=== PATIENT | female | born 1935 | race Caucasian/White ===

== ENCOUNTER 2017-01-01 21:39 | Inpatient (IN) | payer MEDICARE, OTHER ==
--- NOTE | ~2017-01-01 | EKG ---
PATIENT: AMANDA ORTIZ UNIT #: [id number] Ventricular Rate: 91 BPM Atrial Rate: 93 BPM QRS Duration: 68 ms Q-T Interval: 364 ms QTC Calculation(Bezet): 447 ms Calculated T [place]: 8 degrees Diagnosis Line: Sinus tachycardia Diagnosis Line: Nonspecific T wave abnormality Diagnosis Line: Abnormal ECG Diagnosis Line: No previous ECGs available Diagnosis Line: Confirmed by CONRADO STREETER MD ([id number]) on 01/04/2017 Diagnosis Line: 10:55:02 PM INTERPRETING MD: SYL GALINDO
--- NOTE | ~2017-01-01 | HP ---
Unit #: [id number] #: [id number] Patient: AMANDA ORTIZ [id number] [facility] [address] [facility]. [place], [place] [address] [id number] I MR#: [id number] NAME: AMANDA ORTIZ ROOM: 57224 Age: 85 Sex: F Admission Date: 01/01/2017 : 10/03/1931 Attending Physician: Leah Rain M.D. Primary Care Physician: No Primary Care Physician HISTORY AND PHYSICAL DISCUSSION So this is a lady, we do not know exact name, exact age. She is her 80s. She was found wandering on the streets and somebody called EMS, and she was brought to the emergency room. She was brought to the ER. On workup, she was found to have a UTI, possible pneumonia. She is alert, awake, oriented x0, confused. She is telling me, "My name is Tricia Awan," but she is pleasantly confused, not able to give me any history, medical problems. She has been admitted with pneumonia and UTI. PAST MEDICAL HISTORY Past medical problems are unknown. PAST SURGICAL HISTORY Unknown. HOME MEDICATIONS Unknown. SOCIAL HISTORY Unknown. PHYSICAL EXAMINATION CURRENT VITALS: Temperature is 97.7, heart rate 92, respirations 14, blood pressure 154/91, oxygen 100% on room air. GENERAL: She is alert, awake, oriented x0. HEENT: Pupils are equal and reactive to light. Head is normocephalic and atraumatic. NECK: Neck is supple. No JVD. HEART: S1, S2. Regular rate and rhythm. LUNGS: Lungs are clear to auscultation bilaterally. No rhonchi. No wheezing. ABDOMEN: Abdomen is soft, nontender, nondistended. Bowel sounds are positive. EXTREMITIES: Inspection is normal. No cyanosis. No clubbing. No edema. NEUROLOGIC: No focal neurologic deficits. Cranial nerves II-XII intact. DIAGNOSTIC STUDIES LABORATORY WORKUP: White count is 7, hemoglobin 12, hematocrit 39, platelets 282. Chemistry - Sodium 140, potassium 3.8, chloride 103, glucose 103, BUN 28, creatinine 1.9. LFTs within normal limits. UA is turbid appearance, positive leukocyte esterase, WBC 100-200. Troponin less than 0.05. IMAGING: Chest x-ray - Possible pneumonia. Unit #: [id number] #: [id number] Patient: AMANDA ORTIZ CT head is pending at the time of dictation. ASSESSMENT 1. Change in mental status. 2. Urinary tract infection. 3. Pneumonia. PLAN Admit the patient. Start on regular diet. IV Rocephin, Zithromax. Lovenox for DVT prophylaxis. IV fluids. Will repeat labs in the morning. NOTE: Once again, this patient is a fake name, fake age, fake medical number, unavailable at this time. Dictated by Adri Teixeira TD: 01/02/2017 08:45 JOB #: [id number] HISTORY AND PHYSICAL Page 1 of 1 X X HISTORY AND PHYSICAL
--- NOTE | ~2017-01-01 | HP ---
Unit #: [id number] #: [id number] Patient: BORIS SANZ [id number] [address] [address] [id number] I MR#: [id number] NAME: BORIS SANZ ROOM: 563 Age: 82 Sex: F Admission Date: 01/01/2017 : 1935 Attending Physician: Leah Rain M.D. HISTORY AND PHYSICAL ADDENDUM Additional historical information was obtained upon arrival of family members. I spoke with Karen Sneed, the patient's daughter. Apparently, the patient was last seen normal on December 31, 2016. She had not been complaining of anything, no chest pain, no cough or cold symptoms, and no bowel or bladder problems. She does have a history of dementia. She has had progressively worsening dementia over the past couple of years. She may or may not know the date or where she is. She was apparently moved to a different apartment last week. She had been very upset regarding this issue. She lives alone. Family checks on her frequently. She typically walks without assistance. PAST MEDICAL HISTORY 1. Dementia. 2. Hypertension. 3. Hyperlipidemia. 4. Cerebrovascular accident. 5. Coronary artery disease followed by Dr. Farmer. 6. Valvular heart disease, status post repair. PAST SURGICAL HISTORY Valve repair. SOCIAL HISTORY The patient lives alone. There is no tobacco or alcohol use. She walks without assistance. Her code status is a Do Not Resuscitate. FAMILY HISTORY Noncontributory. I spoke with the patient's family members who are at bedside. They would like halfway placement. I have consulted Care Management and Social Work regarding halfway placement. I have also ordered physical therapy and occupational therapy to evaluate and treat. Dictated by Adri Manley/jose angel TD: 01/02/2017 21:07 JOB #: [id number] Unit #: [id number] #: [id number] Patient: BORIS SANZ HISTORY AND PHYSICAL Page 1 of 1 X Monie Constantino MD X HISTORY AND PHYSICAL
--- NOTE | ~2017-01-01 | DS ---
Unit #: [id number] #: [id number] Patient: BORIS SANZ [id number] [address] [address] [id number] I MR#: [id number] NAME: BORIS SANZ ROOM: 201 Age: 82 Sex: F Admission Date: 01/01/2017 : 1935 Discharge Date: Attending Physician: Leah Rain M.D. Primary Care Physician: Primary Care Physician No DISCHARGE SUMMARY FINAL DIAGNOSES 1. Metabolic encephalopathy. 2. Vascular dementia. 3. Possible community-acquired pneumonia. SECONDARY DIAGNOSES 1. Alzheimer dementia with delirium. 2. Debility. 3. Hypertension. 4. Hyperlipidemia. 5. History of cerebrovascular accident. 6. Coronary artery disease. 7. History of valvular heart disease, status post repair. CONSULTS None. HOSPITAL COURSE The patient is a pleasant 82-year-old female who was admitted to the hospital when someone called EMS as she was found wandering the streets. She was brought to the emergency room and seen. On workup in the emergency room, it was thought that she may have had a urinary tract infection with possible pneumonia. However, her urine cultures were negative. She was eventually started on Rocephin but this was discontinued. She had episodes of delirium while she was hospitalized and for which she was given some Haldol. She is pleasantly confused and lives by herself though family checks up on her periodically. She was evaluated and found to be stable for discharge to long-term care facility. She will be discharged to [facility]. DISCHARGE MEDICATIONS Include: 1. Pacerone 100 mg p.o. daily. 2. Seroquel 12.5 mg p.o. h.s. 3. Amlodipine 7.5 mg p.o. daily. 4. Metoprolol 25 mg p.o. b.i.d. 5. Aricept 5 mg p.o. h.s. 6. Zithromax 250 mg p.o. daily times 4 more days. 7. Multivitamin one tablet p.o. daily. 8. Aspirin 81 mg p.o. daily. 9. Levothyroxine 75 mcg p.o. daily. 10. She will be offered a pneumonia shot perhaps at discharge and a flu shot as well prior to discharge. Unit #: [id number] #: [id number] Patient: BORIS SANZ Time spent on discharge process is 26 minutes. Dictated by... Adri Cruz/mina TD: 01/07/2017 21:57 JOB #: [id number] DISCHARGE SUMMARY Page 1 of 1 X Leah Rain MD X DISCHARGE SUMMARY
--- NOTE | ~2017-01-01 | CT71 ---
[facility] A Service of [facility] RADIOLOGY TEXT RESULTS PATIENT: BORIS SANZ LOCATION: [facility] 563 : 33 UNIT #: [id number] AGE: [address]: Leah Rain MD SEX: F ORDER DR: [id number] [facility] [address] [place], [place] [address] [id number] I MR#: [id number] Acc #: [id number] NAME: AMANDA ORTIZ : 10/03/1931 SEX: F STUDY DATE/TIME: 01/01/2017 22:46 UNIT: CEDOF ROOM: 73816 STUDY DESCRIPTION: CT Head Wo Contrast Attending Physician: Leah Rain M.D. Ordering Physician: Moses Winchester M.D. Primary Care Physician: Primary Care Physician No MEDICAL IMAGING REPORT This report is preliminary unless electronic signature is present EXAM CT head without contrast, 01/01/2017 HISTORY 85-year-old female with confusion and altered mental status today. COMPARISON None TECHNIQUE Routine unenhanced axial images performed through the brain. This CT exam was performed with one or more of the following radiation dose reduction techniques: automatic exposure control, adjustment of mA and/or kV according to patient size, and iterative reconstruction. FINDINGS No hemorrhage, acute infarction, mass lesion, or abnormal extraaxial fluid collection. No midline shift or focal mass effect. Ventricular system is normal in size and configuration. Gxky-ab-kphpszic generalized atrophy. Moderate chronic small vessel disease in the supratentorial white matter. No acute bony abnormality. Visualized paranasal sinuses and mastoid air cells are clear. IMPRESSION 1. No acute intracranial abnormality. 2. Dlcn-wq-cjfsooge generalized atrophy with moderate chronic small vessel disease. Dictated by... Reece Benedict M.D. THIS IS AN ELECTRONICALLY VERIFIED REPORT [facility] A Service of [facility] RADIOLOGY TEXT RESULTS PATIENT: BORIS SANZ LOCATION: [facility] 563 : 33 UNIT #: [id number] AGE: [address]: Leah Rain MD SEX: F ORDER DR: Reece Benedict M.D. at 01/03/2017 4:42 PM MARY/aubrey TD: 01/02/2017 16:17 JOB #: [id number] MEDICAL IMAGING REPORT Page 1 of 1 COPY
--- NOTE | ~2017-01-01 | CR72 ---
[facility] A Service of [facility] RADIOLOGY TEXT RESULTS PATIENT: BORIS SANZ LOCATION: [facility] : 33 UNIT #: [id number] AGE: [address]: Leah Rain MD SEX: F ORDER DR: [id number] [facility] [address] [place], [place] [address] [id number] I MR#: [id number] Acc #: [id number] NAME: AMANDA ORTIZ : 10/03/1931 SEX: F STUDY DATE/TIME: 01/01/2017 21:54 UNIT: CEDOF ROOM: 00825 STUDY DESCRIPTION: CR Chest Single View Portable Attending Physician: Leah Rain M.D. Ordering Physician: Moses Winchester M.D. Primary Care Physician: Primary Care Physician No MEDICAL IMAGING REPORT This report is preliminary unless electronic signature is present EXAM Chest x-ray single view portable HISTORY Short of air with activity, altered mental status, symptoms started today. COMMENT 2 frontal portable views of the chest timed 2154 01/01/2017 submitted for review. There is no comparison. Postoperative cardiac silhouette is top-normal in size. I suspect there is some underlying chronic lung disease. There are also linear increased parenchymal markings at the lung bases and fullness of the hardik bilaterally. Without prior films, this is all nonspecific. Please correlate for any clinical concern for subtle volume overload resulting in some interstitial edema and patchy airspace disease. Please correlate for any clinical concern for aspiration or early pneumonia given patchy opacity at the left base. Followup to clearing recommended. Most helpful would be comparison to outside films. No pneumothorax. No pleural effusion. Areas of chronic parenchymal scarring also in the differential. IMPRESSION 1. Postoperative heart size is top normal. 2. I suspect this patient has a component of underlying chronic lung disease but since I do not have any comparisons, I cannot determine if there is superimposed acute pathology. There is prominence of the interstitial markings and some patchy airspace disease at the lung bases in particular. Some considerations would include mild volume overload with some patchy pulmonary edema and interstitial edema. Other considerations would include some aspiration or pneumonia particularly at the left base. All of the findings could be chronic. Please correlate further clinically, recommend a followup film and STS. [facility] A Service of [facility] RADIOLOGY TEXT RESULTS PATIENT: BORIS SANZ LOCATION: [facility] 563-01 : 33 UNIT #: [id number] AGE: [address]: Leah Rain MD SEX: F ORDER DR: most helpful would be acquisition of the outside films for comparison. Dictated by... Alpa Cassidy M.D. THIS IS AN ELECTRONICALLY VERIFIED REPORT Alpa Cassidy M.D. at 01/02/2017 11:11 PM OLINDA/landry TD: 01/02/2017 16:01 JOB #: [id number] MEDICAL IMAGING REPORT Page 1 of 1 COPY
[2017-01-01 21:41] LABS: BASOPHIL# 0.1 X10e3 (0-0.3); BASOPHIL% 0.9 % (0-2.5); EOSINOPHIL# 0.1 X10e3 (0-0.7); EOSINOPHIL% 0.7 % (0.0-7.0); HEMATOCRIT 39.1 % (35.0-45.0); HEMOGLOBIN 12.8 gm/dL (12.0-16.0); LYMPHOCYTE# 0.9 X10e3 (1.0-3.5); LYMPHOCYTE% 12.7 % (17.0-45.0); MEAN CELL VOLUME 85.8 FL (83-96); MEAN CORPUSCULAR HEMOGLOBIN 28.1 PG (28-34); MEAN CORPUSCULAR HGB CONC 32.8 g/dL (30-36); MEAN PLATELET VOLUME 8.9 FL (6.5-11.5); MONOCYTE# 0.7 X10e3 (0-1.0); MONOCYTE% 8.9 % (3.0-12.0); NEUTROPHIL# 5.7 X10e3 (1.5-7.1); NEUTROPHIL% 76.8 % (40-75); PLATELET COUNT 282 X10e3 (140-420); RED BLOOD COUNT 4.55 X10e (3.90-5.30); RED CELL DISTRIBUTION WIDTH 14.4 % (11.0-15.5); WHITE BLOOD COUNT 7.4 X10e3 (4.0-10.5)
[2017-01-01 21:42] LABS: DIFF IND NO
[2017-01-01 22:10] LABS: URINE SOURCE CLEAN CATCH
[2017-01-01 22:19] LABS: ALBUMIN SERUM 4.6 g/dL (3.5-5.0); BILIRUBIN, DIRECT 0.1 mg/dL (0.0-0.2); BILIRUBIN,INDIRECT 0.4 mg/dL (0.0-0.9); BILIRUBIN,TOTAL 0.5 mg/dL (0.2-2.0); BUN/CREATININE RATIO 14.73; CALCIUM SERUM 9.4 mg/dL (8.4-10.2); CREATININE SERUM 1.9 mg/dL (0.6-1.4); GLOM FILT RATE Estimated 23.3 mL/min (>60); POTASSIUM 3.8 mmol/L (3.5-5.1); PROTEIN TOTAL SERUM 8.2 g/dL (6.0-8.3)
[2017-01-01 22:19] LABS: URINE APPEARANCE TURBID; URINE BLOOD TRACE (NEG); URINE COLOR DK YELLOW; URINE GLUCOSE NEG (NEG); URINE KETONE TRACE (NEG); URINE LEUKOCYTE ESTERASE 2+ (NEG); URINE NITRATE NEG (NEG); URINE PROTEIN 1+ (NEG); URINE SPECIFIC GRAVITY 1.027 (1.003-1.035)
[2017-01-01 22:22] LABS: CULTURE INDICATED? YES; URINE BACTERIA AUWI 4+ (NEGATIVE); URINE SQUAMOUS EPITHELIAL CELL MANY /[HPF]; UWBCS1 AUWI 100-200 (0-5)
[2017-01-01 22:35] LABS: URINE BILIRUBIN POS (NEG)
[2017-01-01 22:37] LABS: U HYALINE CASTS AUWI 0-2 /[LPF]; URINE CRYSTALS CALCIUM OXALATE /[HPF]
[2017-01-01 22:39] LABS: POC - CKMB 4.6 ng/mL (0.0-7.9); POC - TROPONIN <0.05 ng/mL (<=0.05)
[2017-01-02 04:01] LABS: BASOPHIL# 0.1 X10e3 (0-0.3); BASOPHIL% 0.8 % (0-2.5); EOSINOPHIL# 0.1 X10e3 (0-0.7); EOSINOPHIL% 1.3 % (0.0-7.0); HEMATOCRIT 35.9 % (35.0-45.0); HEMOGLOBIN 11.6 gm/dL (12.0-16.0); LYMPHOCYTE# 1.3 X10e3 (1.0-3.5); LYMPHOCYTE% 18.4 % (17.0-45.0); MEAN CELL VOLUME 86.4 FL (83-96); MEAN CORPUSCULAR HEMOGLOBIN 27.8 PG (28-34); MEAN CORPUSCULAR HGB CONC 32.2 g/dL (30-36); MEAN PLATELET VOLUME 9.3 FL (6.5-11.5); MONOCYTE# 0.9 X10e3 (0-1.0); MONOCYTE% 12.4 % (3.0-12.0); NEUTROPHIL# 4.6 X10e3 (1.5-7.1); NEUTROPHIL% 67.1 % (40-75); PLATELET COUNT 262 X10e3 (140-420); RED BLOOD COUNT 4.16 X10e (3.90-5.30); RED CELL DISTRIBUTION WIDTH 14.5 % (11.0-15.5); WHITE BLOOD COUNT 6.9 X10e3 (4.0-10.5)
[2017-01-02 04:24] LABS: BUN/CREATININE RATIO 16.47; CALCIUM SERUM 8.7 mg/dL (8.4-10.2); CREATININE SERUM 1.7 mg/dL (0.6-1.4); GLOM FILT RATE Estimated 26.7 mL/min (>60); POTASSIUM 3.6 mmol/L (3.5-5.1)
[2017-01-02 04:25] LABS: DIFF IND NO
[2017-01-02] MEDS ORDERED: PACERONE100 MG PO (20:30)
[2017-01-02] MEDS ORDERED: AMLODIPINE BESIL1 GM PO (20:31)
[2017-01-02] MEDS ORDERED: ARICEPT5 M1 PO (20:31)
[2017-01-02] MEDS ORDERED: METOPROLOL TAR25 MG PO (20:32)
[2017-01-02] MEDS ORDERED: ASPIRIN81 M2 PO (20:34)
[2017-01-02] MEDS ORDERED: LEVOTHYROXINE75 MCG PO (20:34)
[2017-01-03 14:15] LABS: BASOPHIL# 0.1 X10e3 (0-0.3); DIFF IND NO; EOSINOPHIL# 0.1 X10e3 (0-0.7); EOSINOPHIL% 2.1 % (0.0-7.0); HEMATOCRIT 35.8 % (35.0-45.0); HEMOGLOBIN 11.7 gm/dL (12.0-16.0); LYMPHOCYTE# 0.7 X10e3 (1.0-3.5); LYMPHOCYTE% 13.1 % (17.0-45.0); MEAN CELL VOLUME 86.4 FL (83-96); MEAN CORPUSCULAR HEMOGLOBIN 28.1 PG (28-34); MEAN CORPUSCULAR HGB CONC 32.6 g/dL (30-36); MEAN PLATELET VOLUME 9.1 FL (6.5-11.5); MONOCYTE# 0.6 X10e3 (0-1.0); MONOCYTE% 10.6 % (3.0-12.0); NEUTROPHIL# 4.1 X10e3 (1.5-7.1); NEUTROPHIL% 73.2 % (40-75); PLATELET COUNT 237 X10e3 (140-420); RED BLOOD COUNT 4.15 X10e (3.90-5.30); RED CELL DISTRIBUTION WIDTH 14.7 % (11.0-15.5); WHITE BLOOD COUNT 5.6 X10e3 (4.0-10.5)
[2017-01-03 14:36] LABS: URINE APPEARANCE CLEAR; URINE BILIRUBIN NEG (NEG); URINE BLOOD NEG (NEG); URINE COLOR YELLOW; URINE GLUCOSE NEG (NEG); URINE KETONE TRACE (NEG); URINE LEUKOCYTE ESTERASE NEG (NEG); URINE NITRATE NEG (NEG); URINE PROTEIN NEG (NEG); URINE SPECIFIC GRAVITY 1.017 (1.003-1.035); URINE UROBILINOGEN 0.2 MG/DL (NEG)
[2017-01-03 14:46] LABS: CALCIUM SERUM 8.2 mg/dL (8.4-10.2); GLOM FILT RATE Estimated 51.7 mL/min (>60); POTASSIUM 4.4 mmol/L (3.5-5.1)
[2017-01-07 06:22] LABS: HEMATOCRIT 36.8 % (35.0-45.0); HEMOGLOBIN 11.9 gm/dL (12.0-16.0); MEAN CELL VOLUME 85.9 FL (83-96); MEAN CORPUSCULAR HEMOGLOBIN 27.7 PG (28-34); MEAN CORPUSCULAR HGB CONC 32.2 g/dL (30-36); MEAN PLATELET VOLUME 9.6 FL (6.5-11.5); RED BLOOD COUNT 4.29 X10e (3.90-5.30); RED CELL DISTRIBUTION WIDTH 14.7 % (11.0-15.5); WHITE BLOOD COUNT 5.1 X10e3 (4.0-10.5)
[2017-01-07 06:49] LABS: BUN/CREATININE RATIO 15.38; CALCIUM SERUM 8.7 mg/dL (8.4-10.2); CREATININE SERUM 1.3 mg/dL (0.6-1.4); GLOM FILT RATE Estimated 37.6 mL/min (>60); MAGNESIUM 2.2 mg/dL (1.6-3.0); POTASSIUM 3.9 mmol/L (3.5-5.1)
== END 2017-01-08 08:26 | DRG 193 ==
LOC: CED 21:39 → CEDOF 23:43 → C5C 01-02 20:11 → C2A 01-04 19:50
PROVIDERS: Emergency Medicine; Family Medicine; Nurse Practitioner
PROC: 3E0234Z Introduction of Serum, Toxoid and Vaccine into Muscle, Percutaneous Approach (ICD-10-PCS; principal; 2017-01-04)
DX: J18.9 Pneumonia, unspecified organism (principal); G93.41 Metabolic encephalopathy; F05 Delirium due to known physiological condition; G30.9 Alzheimer's disease, unspecified; D64.9 Anemia, unspecified; I10 Essential (primary) hypertension; E78.5 Hyperlipidemia, unspecified; I25.10 Atherosclerotic heart disease of native coronary artery without angina pectoris; Z86.73 Personal history of transient ischemic attack (TIA), and cerebral infarction without residual deficits; Z66 Do not resuscitate; F02.80 Dementia in other diseases classified elsewhere, unspecified severity, without behavioral disturbance, psychotic disturbance, mood disturbance, and anxiety; Z23 Encounter for immunization; F01.50 Vascular dementia, unspecified severity, without behavioral disturbance, psychotic disturbance, mood disturbance, and anxiety
CPT/HCPCS: 36415; 70450; 71010; 80048; 80076; 81003; 82553; 82947; 83735; 83880; 84484; 85025; 85027; 87086; 90732; 93005; 97162; 99285; G0009; G8978-GP; G8979-GP; G8980-GP; J0456; J0696; J1630; J1650